=== PATIENT | female | born 1975 | race Caucasian/White ===

== ENCOUNTER 2021-08-10 21:46 | Emergency (ER) | payer OTHER, SELFPAY ==
[2021-08-10 21:53] VITALS: BP 136/84; PULSE 80; RESP 16; TEMP 36.5; O2SAT 96; BMI 25.8
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
[2021-08-10 22:43] VITALS: PULSE 69; O2SAT 97
[2021-08-10 23:00] VITALS: PULSE 66; O2SAT 97
[2021-08-10] MEDS: BACITRACIN OINT 0.9 GM PCKT 1 APPLIC TOP (23:24)
[2021-08-10 23:27] VITALS: BP 122/72; PULSE 76; O2SAT 98
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
== END 2021-08-10 23:46 | disposition home or self-care (01) ==
PROVIDERS: Emergency Provider Emergency Medicine
DX: T23.221A Burn of second degree of single right finger (nail) except thumb, initial encounter (principal); X08.8XXA Exposure to other specified smoke, fire and flames, initial encounter
CPT/HCPCS: 99282